=== PATIENT | male | born 1945 | race Caucasian/White ===

== ENCOUNTER 2024-01-19 16:22 | Emergency (ER) | payer OTHER ==
--- OUTSIDE RECORDS SUMMARY | 2024-01-19 16:25 | XMS REPORT | Continuity of Care Document ---
Author Name Unknown Address [address] [facility] [address] [place] [address] [facility] thconnect Address [address] [facility] [address] [place] [address] Care Team Providers Care Supervisor Line Department Name Role Phone Martin Stout Primary Care Physician [phone] JOE FAUSTIN Attending Clinician Andres Villeda MD, Joe Bonds Attending Clinician [phone] Doctor Unassigned, Drain Attending Clinician U Mirella Yee MD Attending Clinician [phone] MIRELLA WEBBER Attending Clinician JOE Alonso Admitting Clinician Andres Villeda MD, Joe Bonds Admitting Clinician [phone] Payers Payer Name Policy Type Policy Number Effective Date Expirati on Date Source MEDICARE PART A \T\ [id number] 2011 00:00:00 [employer] SENIOR SUPPLEMENT [id number] 2021 00:00:00 Allergies, Adverse Reactions, Alerts Allergy Name Allergy Type Status Severity Reaction(s) Onset Date Inactive Date Treating Clinician Comments Source NO KNOWN ALLERGIE S Drug Class Active [facility] Social History Social Habit Start Date Stop Date Quantity Comments Source Exposure to SARS-CoV-2 (event) Not sure General acute hospital Sexual orientation U [facility] History of Social function 2023-07-10 00:00:00 2023-07-10 00:00:00 [facility] Tobacco use and exposure 2023-06-19 00:00:00 2023-06-19 00:00:[address] [facility] Sex Assigned At 1945 00:00:00 1945 00:00:00 [facility] Smoking Status Start Date Stop Date Source Unknown if ever smoked [facility] Never smoked tobacco [facility] Medications Ordered Medication Name Filled Medication Name Start Date Stop Date Current Medication? Ordering Clinician Indication Dosage Frequency Signature (SIG) Comments Components Source sodium chloride (NS) injection 07-10 20:45: 00 07-10 20:58 :42 No PRN, Starting on Sat07/10/23 at 1445, Until Sat07/10/23 at 1458, Routine, Intra-op [facility] neomycin-po lymyxin-dex amethasone (MAXITROL) 3.5 mg/g-10,000 unit/g-0.1 % ophthalmic ointment 07-10 20:45: 00 07-10 20:58 :42 No PRN, Starting on Sat07/10/23 at 1445, Until Sat07/10/23 at 1458, Routine, Intra-op [facility] dexamethaso ne (DECADRON PHOSPHATE) injection 07-10 20:45: 00 07-10 20:58 :42 No PRN, Starting on Sat07/10/23 at 1445, Until Sat07/10/23 at 1458, Routine, Intra-op [facility] ceFAZolin (ANCEF) injection 07-10 20:45: 00 07-10 20:58 :42 No PRN, Starting on Sat07/10/23 at 1445, Until Sat07/10/23 at 1458, LIZA, Intra-op [facility] carbachoL (MIOSTAT) 0.01 % intraocular injection 07-10 20:44: 00 07-10 20:58 :42 No PRN, Starting on Sat07/10/23 at 1444, Until Sat07/10/23 at 1458, Routine, Intra-op [facility] chondroitin sulf-sod hyaluronate (DUOVISC VISCO ELASTIC) intraocular injection 07-10 20:35: 00 07-10 20:58 :42 No PRN, Starting on Sat07/10/23 at 1435, Until Sat07/10/23 at 1458, Routine, Intra-op [facility] EPINEPHrine 1:1,000 (1 mg/mL) (ADRENALIN) injection 07-10 20:34: 00 07-10 20:58 :42 No PRN, Starting on Sat07/10/23 at 1434, Until Sat07/10/23 at 1458, Routine, Intra-op [facility] balanced salt irrig soln comb1 (BSS PLUS) ophthalmic solution 500 mL bag 07-10 20:34: 00 07-10 20:58 :42 No PRN, Starting on Sat07/10/23 at 1434, Until Sat07/10/23 at 1458, Routine, Intra-op [facility] water for irrigation irrigation solution 07-10 20:28: 00 07-10 20:58 :42 No PRN, Starting on Sat07/10/23 at 1428, Until Sat07/10/23 at 1458, Routine, Intra-op [facility] Hyaluronida se, Human Recomb. (HYLENEX) injection 07-10 20:26: 00 07-10 20:58 :42 No PRN, Starting on Sat07/10/23 at 1426, Until Sat07/10/23 at 1458, Routine, Intra-op [facility] eye block syringe 11 mL 07-10 20:25: 00 07-10 20:58 :42 No PRN, Starting on Sat07/10/23 at 1425, Until Sat07/10/23 at 1458, Intra-op Univers [facility] cyclopent 1%-tropic 1%-phenyl 2.5%-ketor 0.5% (MYDRIATIC #5) ophthalmic solution syringe 0.5 mL 07-10 18:45: 00 07-10 18:40 :00 No .5mL 0.5 mL, Left Eye, ONCE, 1 dose, On Sat07/10/23 at 1245, Routine, DSU Pre-op [facility] lactated ringers IV infusion 1,000 mL 07-10 18:45: 00 07-10 18:40 :00 No 1000mL at 42 mL/hr, 1,000 mL, IV Infusion, ONCE, 1 dose, On Sat07/10/23 at 1245, Routine, DSU Pre-op [facility] omeprazole 40 mg capsule 07-10 15:27: 29 Yes 40mg Take 1 capsule by mouth in the morning. [facility] pravastatin 40 mg tablet 07-10 15:27: 29 Yes 40mg Take 1 tablet by mouth at bedtime. [facility] losartan 25 mg tablet 07-10 15:27: 29 Yes 25mg Take 1 tablet by mouth in the morning. [facility] tamsulosin 0.4 mg 24 hr capsule 07-10 15:27: 29 Yes Take by mouth daily. [facility] zinc gluconate 50 mg tablet 07-10 15:27: 29 Yes 50mg Take 1 tablet by mouth in the morning. [facility] antiox #8/om3/dha/ epa/lut/law x (PRESERVISI ON AREDS 2, OMEGA-3, ORAL) 07-10 15:27: 29 Yes 1{tbl} Take 1 tablet by mouth in the morning and 1 tablet in the evening. [facility] [place]-3-DHA -EPA-Fish Oil 1,200 (144-216) mg Cap 07-10 15:27: 29 Yes 1{capsu le} Take 1 capsule by mouth in the morning. [facility] lactated ringers IV infusion 1,000 mL 06-26 18:45: 00 Yes 1000mL at 50 mL/hr, 1,000 mL, IV Infusion, CONTINUOUS , Starting on Sat06/26/23 at 1245, Until Discontinu ed, Routine, PACU [facility] ondansetron (ZOFRAN (PF)) injection 4 mg 06-26 18:37: 44 Yes 4mg 4 mg, Slow IV Push, PRN, 1 dose, Starting on Sat06/26/23 at 1237, Until Discontinu ed, Routine, Nausea and Vomiting (N/V), PACU [facility] neomycin-po lymyxin-dex amethasone (MAXITROL) 3.5 mg/g-10,000 unit/g-0.1 % ophthalmic ointment 06-26 18:31: 00 06-26 18:41 :49 No PRN, Starting on Sat06/26/23 at 1231, Until Sat06/26/23 at 1241, Routine, Intra-op [facility] dexamethaso ne (DECADRON PHOSPHATE) injection 06-26 18:31: 00 06-26 18:41 :49 No PRN, Starting on Sat06/26/23 at 1231, Until Sat06/26/23 at 1241, Routine, Intra-op [facility] ceFAZolin (ANCEF) injection 06-26 18:31: 00 06-26 18:41 :49 No PRN, Starting on Sat06/26/23 at 1231, Until Sat06/26/23 at 1241, LIZA, Intra-op [facility] carbachoL (MIOSTAT) 0.01 % intraocular injection 06-26 18:30: 00 06-26 18:41 :49 No PRN, Starting on Sat06/26/23 at 1230, Until Sat06/26/23 at 1241, Routine, Intra-op [facility] chondroitin sulf-sod hyaluronate (DUOVISC VISCO ELASTIC) intraocular injection 06-26 18:21: 00 06-26 18:41 :49 No PRN, Starting on Sat06/26/23 at 1221, Until Sat06/26/23 at 1241, Routine, Intra-op [facility] water for irrigation irrigation solution 06-26 18:04: 00 06-26 18:41 :49 No PRN, Starting on Sat06/26/23 at 1204, Until Sat06/26/23 at 1241, Routine, Intra-op [facility] sodium chloride (NS) injection 06-26 18:03: 00 06-26 18:41 :49 No PRN, Starting on Sat06/26/23 at 1203, Until Sat06/26/23 at 1241, Routine, Intra-op [facility] Hyaluronida se, Human Recomb. (HYLENEX) injection 06-26 18:03: 00 06-26 18:41 :49 No PRN, Starting on Sat06/26/23 at 1203, Until Sat06/26/23 at 1241, Routine, Intra-op [facility] eye block syringe 11 mL 06-26 18:02: 00 06-26 18:41 :49 No PRN, Starting on Sat06/26/23 at 1202, Until Sat06/26/23 at 1241, Intra-op Univers [facility] EPINEPHrine 1:1,000 (1 mg/mL) (ADRENALIN) injection 06-26 18:01: 00 06-26 18:41 :49 No PRN, Starting on Sat06/26/23 at 1201, Until Sat06/26/23 at 1241, Routine, Intra-op [facility] balanced salt irrig soln comb1 (BSS PLUS) ophthalmic solution 500 mL bag 06-26 18:00: 00 06-26 18:41 :49 No PRN, Starting on Sat06/26/23 at 1200, Until Sat06/26/23 at 1241, Routine, Intra-op [facility] cyclopent 1%-tropic 1%-phenyl 2.5%-ketor 0.5% (MYDRIATIC #5) ophthalmic solution syringe 0.5 mL 06-26 16:15: 00 06-26 16:30 :00 No .5mL 0.5 mL, Right Eye, ONCE, 1 dose, On Sat06/26/23 at 1015, Routine, DSU Pre-op [facility] lactated ringers IV infusion 1,000 mL 06-26 16:15: 00 06-26 16:30 :00 No 1000mL at 42 mL/hr, 1,000 mL, IV Infusion, ONCE, 1 dose, On Sat06/26/23 at 1015, Routine, DSU Pre-op [facility] tamsulosin 0.4 mg 24 hr capsule 06-26 13:44: 47 Yes Take by mouth daily. [facility] zinc gluconate 50 mg tablet 06-26 13:44: 47 Yes 50mg Take 1 tablet by mouth in the morning. [facility] antiox #8/om3/dha/ epa/lut/law x (PRESERVISI ON AREDS 2, OMEGA-3, ORAL) 06-26 13:44: 47 Yes 1{tbl} Take 1 tablet by mouth in the morning and 1 tablet in the evening. [facility] [place]-3-DHA -EPA-Fish Oil 1,200 (144-216) mg Cap 06-26 13:44: 47 Yes 1{capsu le} Take 1 capsule by mouth in the morning. [facility] omeprazole 40 mg capsule 06-26 13:44: 47 Yes 40mg Take 1 capsule by mouth in the morning. [facility] pravastatin 40 mg tablet 06-26 13:44: 47 Yes 40mg Take 1 tablet by mouth at bedtime. [facility] losartan 25 mg tablet 06-26 13:44: 47 Yes 25mg Take 1 tablet by mouth in the morning. [facility] methylPREDN ISolone (MEDROL, DEANDRE,) 4 mg tablets 2019-05 00:00: 00 Yes [id number] 84mg Take 21 tablets by mouth SEE-INSTRU CTIONS. follow package directions [facility] No known medications No Un gabino [facility] No known medications No Un gabino [facility] No known medications No Un gabino it[facility] No known medications [facility]s Vital Name Observation Time Observation Value Comments Rell raya Systolic blood pressure 2023-07-10 21:10:00 123 mm[Hg] [facility] Diastolic blood pressure 2023-07-10 21:10:00 76 mm[Hg] [facility] Heart rate 2023-07-10 21:10:00 65 /min [facility] Body temperature 2023-07-10 21:10:[address] [facility] Respiratory rate 2023-07-10 21:10:00 9 /min [facility] Oxygen saturation in Arterial blood by Pulse oximetry 2023-07-10 21:10:00 96 /min [facility] Body height 2023-07-03 21:00:00 177.8 cm [facility] Body weight 2023-07-03 21:00:00 92.534 kg [facility] BMI 2023-07-03 21:00:00 29.27 kg/m2 [facility] Systolic blood pressure 2023-07-10 18:33:00 125 mm[Hg] [facility] Diastolic blood pressure 2023-07-10 18:33:00 86 mm[Hg] [facility] Heart rate 2023-07-10 18:33:00 98 /min [facility] Body temperature 2023-07-10 18:33:[address] [facility] Respiratory rate 2023-07-10 18:33:00 16 /min [facility] Oxygen saturation in Arterial blood by Pulse oximetry 2023-07-10 18:33:00 99 /min [facility] Body height 2023-07-03 21:00:00 177.8 cm [facility] Body weight 2023-07-03 21:00:00 92.534 kg [facility] BMI 2023-07-03 21:00:00 29.27 kg/m2 [facility] Heart rate 2023-06-26 19:00:00 66 /min [facility] Oxygen saturation in Arterial blood by Pulse oximetry 2023-06-26 19:00:00 97 /min [facility] Systolic blood pressure 2023-06-26 18:56:00 123 mm[Hg] [facility] Diastolic blood pressure 2023-06-26 18:56:00 80 mm[Hg] [facility] Respiratory rate 2023-06-26 18:56:00 13 /min [facility] Body temperature 2023-06-26 18:40:[address] [facility] Body height 2023-06-19 20:00:00 177.8 cm [facility] Body weight 2023-06-19 20:00:00 92.534 kg [facility] BMI 2023-06-19 20:00:00 29.27 kg/m2 [facility] Systolic blood pressure 2023-06-26 16:23:00 115 mm[Hg] [facility] Diastolic blood pressure 2023-06-26 16:23:00 84 mm[Hg] [facility] Heart rate 2023-06-26 16:23:00 95 /min [facility] Body temperature 2023-06-26 16:23:[address] [facility] Respiratory rate 2023-06-26 16:23:00 19 /min [facility] Oxygen saturation in Arterial blood by Pulse oximetry 2023-06-26 16:23:00 95 /min [facility] Body height 2023-06-19 20:00:00 177.8 cm [facility] Body weight 2023-06-19 20:00:00 92.534 kg [facility] BMI 2023-06-19 20:00:00 29.27 kg/m2 [facility] Systolic blood pressure 2020-03-07 18:31:00 114 mm[Hg] [facility] Diastolic blood pressure 2020-03-07 18:31:00 76 mm[Hg] [facility] Heart rate 2020-03-07 18:31:00 115 /min [facility] Body weight 2020-03-07 18:31:00 88.451 kg [facility] BMI 2020-03-07 18:31:00 27.98 kg/m2 [facility] Systolic blood pressure 2020-03-07 18:31:00 114 mm[Hg] [facility] Diastolic blood pressure 2020-03-07 18:31:00 76 mm[Hg] [facility] Heart rate 2020-03-07 18:31:00 115 /min [facility] acute hospital Body weight 2020-03-07 18:31:00 88.451 kg [facility] BMI 2020-03-07 18:31:00 27.98 kg/m2 [facility] Systolic blood pressure 2020-02-18 19:45:00 112 mm[Hg] [facility] Diastolic blood pressure 2020-02-18 19:45:00 80 mm[Hg] [facility] Heart rate 2020-02-18 19:45:00 93 /min [facility] acute hospital Body height 2020-02-18 19:45:00 177.8 cm [facility] Body weight 2020-02-18 19:45:00 88.451 kg [facility] BMI 2020-02-18 19:45:00 27.98 kg/m2 [facility] Procedures Procedure Date / Time Performed Performing Clinician Source PHACOEMULSIFICATION OF CATARACT WITH INTRAOCULAR LENS IMPLANT 2023-07-10 20:15:[address] [facility] PHACOEMULSIFICATION OF CATARACT WITH INTRAOCULAR LENS IMPLANT 2023-06-26 17:53:[address] [facility] PATIENT QUESTIONNAIRE 2023-06-26 06:01:00 Doctor Unassigned, Drain [facility] ASSIGNMENT OF BENEFITS 2023-06-17 21:56:28 Doctor Unassigned, Drain [facility] MR HIP RIGHT WO CONTRAST 2020-03-03 14:04:[address] [facility] ASSIGNMENT OF BENEFITS 2020-03-03 12:40:53 Doctor Unassigned, Drain [facility] ASSIGNMENT OF BENEFITS 2020-02-18 19:18:46 Doctor Unassigned, Drain [facility] Encounters Start Date/Time End Date/Time Encounter Type Admission Type Attending [facility] Care Department Encounter ID Source 2023-07-10 12:21:00 2023-07-10 15:18:00 Outpatient JOE CONTRERAS [facility] OPH [id number] [facility] 2023-07-10 12:21:00 2023-07-10 15:18:00 Hospital Encounter Joe Faustin [facility] [id number] 350.1.13.10 4.2.7.2.686 [id number] [facility] 2023-07-10 12:56:00 2023-07-10 13:30:00 Surgery Joe Faustin [facility] [id number] 350.1.13.10 4.2.7.2.686 [id number] [facility] 2023-06-26 10:10:00 2023-06-26 13:05:00 Outpatient R JOE FAUSTIN [facility] OPH [id number] [facility] 2023-06-26 10:10:00 2023-06-26 13:05:00 Hospital Encounter Joe Faustin [facility] [id number] 350.1.13.10 4.2.7.2.686 [id number] [facility] 2023-06-26 11:15:00 2023-06-26 11:49:00 Surgery Joe Faustin [facility] [id number] 350.1.13.10 4.2.7.2.686 [id number] [facility] 2023-06-26 00:00:00 2023-06-26 00:00:00 Orders Only Doctor Unassigned, Drain [facility] [id number] 350.1.13.10 4.2.7.2.686 [id number] [facility] 2023-06-17 00:00:00 2023-06-17 00:00:00 Orders Only Doctor Unassigned, Drain [facility] [id number] 350.1.13.10 4.2.7.2.686 [id number] [facility] 2020-03-07 13:27:31 2020-03-07 13:55:21 [facility] [id number] 350.1.13.10 4.2.7.2.686 [id number] [facility] 2020-03-07 13:27:31 2020-03-07 13:55:21 [facility] 1.2.114 350.1.13.10 4.2.7.2.686 [id number] 2020-03-07 13:30:00 2020-03-07 13:30:00 Outpatient R MIRELLA WEBBER [facility] [id number] [facility] 2020-03-03 07:43:01 2020-03-03 23:59:00 Hospital Encounter Mirella Webber [facility] [id number] 350.1.13.10 4.2.7.2.686 [id number] [facility] 2020-03-03 00:00:00 2020-03-03 00:00:00 Outpatient R MIRELLA WEBBER [facility] [id number] [facility] 2020-03-03 00:00:00 2020-03-03 00:00:00 Orders Only Doctor Unassigned, Drain [facility] 1.2.114 350.1.13.10 4.2.7.2.686 [id number] [facility] 2020-02-18 14:58:14 2020-02-18 23:59:00 Hospital Encounter Lawanda [facility] Surgical [facility] [id number] 350.1.13.10 4.2.7.2.686 [id number] [facility] 2020-02-18 14:23:45 2020-02-18 15:40:03 Office Visit Mirella Webber [facility] [id number] 350.1.13.10 4.2.7.2.686 [id number] [facility] 2020-02-18 14:15:00 2020-02-18 14:15:00 Outpatient R MIRELLA WEBBER [facility] [id number] [facility] 2020-02-18 00:00:00 2020-02-18 00:00:00 Orders Only Doctor Unassigned, Drain [facility] [id number] 350.1.13.10 4.2.7.2.686 [id number] [facility] Results Test Description Test Time Test Comments Results Result Co mments Source [facility] 23:44:00* Test Item Value Reference Range Interpretation Comme nts TSH (test code = 46889610) 1.05 mIU/L 0.40-4.50 N FASTING:[facility], [id number] 23:44:00* Test Item Value Reference Range Interpretation Comme nts PSA, TOTAL (test code = 62988946) 0.25 ng/mL <=4.00 N The total PSA v alue from this assay system is standardized against the WHO standard. The test result will be approximately 20% lower when compared to the equimolar-standardized total PSA (Chichi Catrina). Comparison of serial PSA results should be interpreted with this fact in mind. This test was performed using the Siemens chemiluminescent method. Values obtained from different assay methods cannot be usedinterchangeably. PSA levels, regardless ofvalue, should not be interpreted as absoluteevidence of the presence or absence of disease. FASTING:[facility] RIGHT WO [id number] 14:32:27 Severe iliopsoas bursitis with iliopsoas tendinopathy. Partial tear of the gluteus medius at the lateral facet greater trochanterinsertion. 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 EXAM: MRI RIGHT HIP HISTORY: Hip pain, chronic, initial exam COMPARISON: Right hip radiographs dated 02/18/2020 TECHNIQUE AND FINDINGS: 1.5T multiplanar multiweighted MR imaging of the right hip was performed. BONE AND JOINT: Severe lumbosacral junction spondylosis and facet arthropathy are partiallyvisualized. Bilateralfemoral acetabular joint space loss with marginalosteophyte formation is seen bilaterally. There isgrade 3 femoralacetabular chondral loss with extensive subcortical cystic changes andedema noted along the superior femoral head and adjacent articular surfaceof the acetabulum. ?A moderate sized right hip joint effusion is presentwith no labral detachment. Serpentine and patchy foci of T2 signal increaseare scattered throughout the femoral neck which may relate to atypical redmarrow conversion reconversion versus medullary vascularity. LIGAMENTS /TENDONS/SOFT TISSUES:Marked heterogeneous hyperintense fluid signal intensity distends theiliopsoas bursa from the level of the proximal myotendinous junctionadjacent to the iliac fossa/anterior wall acetabulum to the level of thelesser trochanter insertion. Internal low signal debris is seen throughoutthis region. This process spans at least 10.2 cm in greatest craniocaudaldimension. Edema extends into the surrounding iliopsoas musculature. Thereis intermediate T2 signal increase with thickening seen about the distaltendon fibers at the lesser trochanter insertion. T2 fluid signal intensityinterrupts the gluteus medius tendon at the lateral facet greatertrochanter insertion with a 3 cm fluid-filled retraction gap. Mildinterstitial T2 signal increase is seen at the tendinous origin of thecommon hamstring tendon complex. Partial fatty infiltration is seen alongthe lateral muscle belly of the proximal muscle belly of the rectus femoriswhich may relate to a prior partial tear. The piriformis muscle belliesappear symmetric. There is mild edema within the adductor musculature. [facility], Radiant Results Inft User - 03/03/2020 9:33 AM CDTEXAM:MRI RIGHT HIPHISTORY: Hip pain, chronic, initial exam COMPARISON: Right hip radiographs dated 02/18/2020TECHNIQUE AND FINDINGS:1.5T multiplanar multiweighted MR imaging of the right hip was performed.BONE AND JOINT: Severe lumbosacral junction spondylosis and facet arthropathy are partiallyvisualized. Bilateral femoral acetabular joint space loss with marginalosteophyte formation is seen bilatera lly. There is grade 3 femoralacetabular chondral loss with extensive subcortical cystic changes andedema noted along the superior femoral head and adjacent articular surfaceof the acetabulum. A moderate sized right hip joint effusion is presentwith no labral detachment. Serpentine and patchy foci of T2 signal increaseare scattered throughout the femoral neck which may relate to atypical redmarrowconversion reconversion versus medullary vascularity.LIGAMENTS /TENDONS/SOFT TISSUES:Marked heterogeneous hyperintense fluid signal intensity distends theiliopsoas bursa from the level of the proximal myotendinous junctionadjacent to the iliac fossa/anterior wall acetabulum to the level of thelesser trochanter insertion. Internal low signal debris is seen throughoutthis region. This process spansat least 10.2 cm in greatest craniocaudaldimension. Edema extends into the surrounding iliopsoas musculature. Thereis intermediate T2 signal increase with thickening seen about the distaltendon fibers at the lesser trochanter insertion. T2 fluid signal intensityinterrupts the gluteus medius tendon at the lateral facet greatertrochanter insertion with a 3 cm fluid-filled retraction gap. Mildinterst itial T2 signal increase is seen at the tendinous origin of thecommon hamstring tendon complex. Partial fatty infiltration is seen alongthe lateral muscle belly of the proximal muscle belly of the rectus femoriswhich may relate to a prior partial tear. 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 [facility] 2023-06-26 11:08:29 H&P Update H&P was reviewed and the patient was examined and there was no change in the patient's condition. [facility] Notes Date/Time Note Provider Source 2023-07-03 15:55:41 Images from the original note were not included. Your procedure is at [facility] on 07/10/23. The [address] is [address] [place] [address], [id number]. [facility] nursing staff will call you the workday before your procedure to let you know what time to arrive.On the day of your procedure, please go inside that door and check in at the desk. Please note: You may not travel home alone and that includes in a taxi or by bus. We must speak to your Responsible Adult (who will be picking you up) the morning of your procedure, before the start of your procedure. This person must be an adult over the age of 18 years of age. Do not eat any solid food after midnight the night before surgery. You may have sips of clear liquids such as water, gatorade, and sprite up until two hours before your scheduled procedure. You may take your medications with a sip of water as directed by physician. Anticoagulants will be per physician guidance. Medication Note(s)/Instructions:n/a Pending screening, we may test for COVID. If a patient tests positive, their cases are cancelled and/or rescheduled. COVID SCREENING NOTE: Denies COVID symptoms, no testing required. Additional requests, questions, concerns:CB number provided. Patient verbalized understanding of pre-op instructions and voiced no further questions at this time. [facility] 2023-06-19 14:54:24 Images from the original note were not included. Your procedure is at [facility] on 06/26/23. The address is [address] [place] [address], [id number]. [facility] nursing staff will call you the workday before your procedure to let you know what time to arrive.On the day of your procedure, please go inside that door and check in at the desk. Please note: You may not travel home alone and that includes in a taxi or by bus. We must speak to your Responsible Adult (who will be picking you up) the morning of your procedure, before the start of your procedure. This person must be an adult over the age of 18 years of age. Do not eat any solid food after midnight the night before surgery. You may have sips of clear liquids such as water, gatorade, and sprite up until two hours before your scheduled procedure. You may take your medications with a sip of water as directed by physician. Anticoagulants will be per physician guidance. Medication Note(s)/Instructions:n/a Pending screening, we may test for COVID. If a patient tests positive, their cases are cancelled and/or rescheduled. COVID SCREENING NOTE: Denies COVID symptoms, no testing required. Additional requests, questions, concerns:n/a. CB number provided. Patient verbalized understanding of pre-op instructions and voiced no further questions at this time. [facility]ALTH [facility]ARE [email or web address] [facility]
[2024-01-19] MEDS ORDERED: TDAP (DIPHTH,PERTUSS(ACELL),TET VAC) 0.5 ML VIAL IMVAC ONE (16:46)
[2024-01-19] MEDS ORDERED: LIDOCAINE 2% W/EPI 1:200,000 MPF 20 ML VIAL IM ONE (16:46)
--- NOTE | 2024-01-19 18:37 | EDPHYS ---
Physician Documentation [facility] Name: Kapil Terrell Age: 78 yrs Sex: Male : 1945 Arrival Date: 01/19/2024 Time: 16:22 Bed 8 Private MD: ED Physician Debra Nina HPI: 01/18 18:32 This 78 yrs old Male presents to ER via Ambulatory with complaints of Laceration To Leg.sd2 18:32 78-year-old male presents with chief complaint of laceration to his left leg from a sd2 garden tiller. He reports that the tool was still in 1 piece and he does not think there are any foreign bodies in the wound. Tetanus is not currently up to date. . Historical: - Allergies: 16:28 No Known Allergies; kc6 - PMHx: 16:28 Hypertensive disorder; colon cancer; prostate cancer; Hypercholesterolemia; kc6 - PSHx: 16:28 Appendectomy; colon resection; kc6 - Immunization history:: Adult Immunizations up to date. - Infectious Disease History:: Denies. - Social history:: Smoking status: Patient denies any tobacco usage or history of. ROS: 18:32 Constitutional: Negative for fever, chills, and weight loss, MS/Extremity: Positive for sd2 injury and negative for deformity Skin: Positive for injury. Negative for rash and discoloration. Neuro: Negative for headache, numbness and tingling. Exam: 18:32 Constitutional: This is a well developed, well nourished patient who is awake, alert, sd2 and in no acute distress. Head/Face: Normocephalic, atraumatic. Skin: Warm, dry with normal turgor. Deep laceration noted to the left lateral martin area with controlled bleeding and visible muscle and fascia, approximately 10 cm. There is another small superficial laceration noted to the dorsum of the left midfoot with controlled bleeding, approximately 4 cm. MS/ Extremity: Pulses equal, no cyanosis. Neurovascular intact. Full, normal range of motion. Vital Signs: 16:25 BP 91 / 68; Pulse 94; Resp 16 S; Temp 98.2(O); Pulse Ox 95% on R/A; Weight 89.81 kg kc6 (R); Height 5 ft. 10 in. (R); Pain 2/10; 17:45 BP 94 / 71; Pulse 87; Resp 16 S; Pulse Ox 97% on R/A; kc6 18:52 BP 102 / 75; Pulse 77; Resp 18; Temp 98; Pulse Ox 96% on R/A; kj2 16:25 Body Mass Index 28.41 (89.81 kg, 177.8 cm) kc6 16:25 Pain Scale: Adult kc6 Laceration: 18:32 Wound Repair of 10cm ( 3.9in ) subcutaneous laceration to left leg. Irregularly sd2 shaped.. Skin/tissue flap noted.. Hemostasis noted.. Distal neuro/vascular/tendon intact. Anesthesia: Local anesthetic administered with 5 mls of 1% lidocaine. Wound prep: Extensive cleansing, Wound irrigation. Subcutaneous tissue closed with 2 4-0 Vicryl using simple sutures and sterile technique. Skin closed with 14 4-0 Prolene using simple sutures and sterile technique. Dressed with 4x4's, Kerlix. Patient tolerated well. 18:32 Wound Repair of 4cm ( 1.6in ) subcutaneous laceration to dorsum of left foot. Linear sd2 shaped.. Distal neuro/vascular/tendon intact. Anesthesia: Local anesthetic administered with 3 mls of 1% lidocaine. Wound prep: Extensive cleansing, Wound irrigation. Skin closed with 4 4-0 Prolene using simple sutures and sterile technique. Dressed with 4x4's, Kerlix. Patient tolerated well. MDM: 16:26 Patient medically screened. cp 18:32 Differential diagnosis: superficial laceration, tendon injury, vascular injury, among sd2 others. Data reviewed: vital signs, nurses notes, radiologic studies. Historians other than the Patient: Spouse/Significant Other: at BS. Counseling: I had a detailed discussion with the patient and/or guardian regarding the historical points, exam findings, and any diagnostic results supporting the discharge/admit diagnosis, radiology results, the need for outpatient follow up, to return to the emergency department if symptoms worsen or persist or if there are any questions or concerns that arise at home. ED course: Laceration repaired without complication or difficulty. Pt tolerated well. Advised of continued wound care and time frame for suture removal. . 01/18 16:34 Order name: XRAY Tib Fib LEFT cp 01/18 16:34 Order name: Dressing - Wound; Complete Time: 16:35 cp 01/18 16:34 Order name: Gloves, Sterile; Complete Time: 16:35 cp 01/18 16:34 Order name: Setup Suture Tray; Complete Time: 16:35 cp 01/18 17:32 Order name: Prolene, Sutures; Complete Time: 17:39 sd2 01/18 17:32 Order name: Vicryl, Sutures; Complete Time: 17:39 sd2 Administered Medications: 16:49 Drug: Boostrix Tdap IM 0.5 ml IM once; as a single dose Route: IM; Site: right deltoid; kc6 17:39 Follow up: Response: No adverse reaction kc6 17:59 Drug: Lidocaine Infiltration (2 %) 20 ml 5 ml Infiltration once; with epinephrine kc6 Volume: 5 ml; Route: Infiltration; Disposition Summary: 01/19/24 18:37 Discharge Ordered Problem: new sd2 Symptoms: have improved sd2 Condition: Stable sd2 Diagnosis - Laceration of left lower leg sd2 - Laceration of dorsum of left foot sd2 Followup: sd2 - With: Emergency Department - When: 7 - 10 days - Reason: Staple/Suture removal Discharge Instructions: - Discharge Summary Sheet sd2 - Laceration Care, Adult sd2 Forms: - Medication Reconciliation Form sd2 - Antibiotic Education sd2 - Prescription Opioid Use sd2 - Patient Portal Instructions sd2 - Leadership Thank You Letter sd2 Signatures: Dispatcher [employer] Raghav Vasques PA PA cp Dunlop, Stephanie, MD MD sd2 Юлия Cash RN RN kc6
--- NOTE | 2024-01-19 18:37 | ER ---
Nurse's Notes [facility] Name: Kapil Terrell Age: 78 yrs Sex: Male : 1945 Arrival Date: 01/19/2024 Time: 16:22 Bed 8 Private MD: Diagnosis: Laceration of left lower leg;Laceration of dorsum of left foot Presentation: 01/18 16:25 Chief complaint: Patient states: pt ambulated into ER via the ambulance bay. pt states kc6 he was starting up his garden tiller when it caught ahold of his pant leg and pulled his leg into it. denies use of blood thinners. Coronavirus screen: At this time, the client does not indicate any symptoms associated with coronavirus-19. Ebola Screen: No symptoms or risks identified at this time. Complicating Factors: There are no complicating factors for this patient. Initial Sepsis Screen: Does the patient meet any 2 criteria? No. Patient's initial sepsis screen is negative. Does the patient have a suspected source of infection? No. Patient's initial sepsis screen is negative. Risk Assessment: Do you want to hurt yourself or someone else? Patient reports no desire to harm self or others. Onset of symptoms was January 19, 2024. 16:25 Method Of Arrival: Ambulatory kc6 16:25 Acuity: CATRINA 3 kc6 Triage Assessment: 16:28 General: Appears in no apparent distress. comfortable, well groomed, well developed, kc6 Behavior is calm, cooperative, appropriate for age. Pain: Complains of pain in dorsum of left foot and lateral aspect of left calf Pain currently is 2 out of 10 on a pain scale. EENT: No signs and/or symptoms were reported regarding the EENT system. Neuro: Level of Consciousness is awake, alert, obeys commands, Oriented to person, place, time, situation, Appropriate for age. Cardiovascular: Capillary refill < 3 seconds. Respiratory: Airway is patent Trachea midline Respiratory effort is even, unlabored, Respiratory pattern is regular, symmetrical. GI: No signs and/or symptoms were reported involving the gastrointestinal system. : No signs and/or symptoms were reported regarding the genitourinary system. Derm: No signs and/or symptoms reported regarding the dermatologic system. Skin is intact, is healthy with good turgor, Skin is dry, Skin is pale, Skin temperature is warm. Musculoskeletal: No signs and/or symptoms reported regarding the musculoskeletal system. Capillary refill < 3 seconds, Range of motion: intact in all extremities. Injury Description: Laceration sustained to dorsum of left foot and lateral aspect of left calf. Historical: - Allergies: 16:28 No Known Allergies; 6 - PMHx: 16:28 Hypertensive disorder; colon cancer; prostate cancer; Hypercholesterolemia; 6 - PSHx: 16:28 Appendectomy; colon resection; kc6 - Immunization history:: Adult Immunizations up to date. - Infectious Disease History:: Denies. - Social history:: Smoking status: Patient denies any tobacco usage or history of. Screenin:32 [facility] ED Fall Risk Assessment (Adult) History of falling in the last 3 months, [facility] including since admission No falls in past 3 months (0 pts) Confusion or Disorientation No (0 pts) Intoxicated or Sedated No (0 pts) Impaired Gait No (0 pts) Mobility Assist Device Used No (0 pt) Altered Elimination No (0 pt) Score/Fall Risk Level 0 - 2 = Low Risk. Abuse screen: Denies threats or abuse. Denies injuries from another. Nutritional screening: No deficits noted. Tuberculosis screening: No symptoms or risk factors identified. Assessment: 16:30 Reassessment: please see triage. [facility] 17:30 Reassessment: Patient appears in no apparent distress at this time. No changes from [facility] previously documented assessment. Patient and/or family updated on plan of care and expected duration. Pain level reassessed. Patient is alert, oriented x 3, equal unlabored respirations, skin warm/dry/pink. 18:30 Reassessment: Patient appears in no apparent distress at this time. No changes from [facility] previously documented assessment. Patient and/or family updated on plan of care and expected duration. Pain level reassessed. Patient is alert, oriented x 3, equal unlabored respirations, skin warm/dry/pink. Vital Signs: 16:25 BP 91 / 68; Pulse 94; Resp 16 S; Temp 98.2(O); Pulse Ox 95% on R/A; Weight 89.81 kg kc6 (R); Height 5 ft. 10 in. (R); Pain 2/10; 17:45 BP 94 / 71; Pulse 87; Resp 16 S; Pulse Ox 97% on R/A; kc6 18:52 BP 102 / 75; Pulse 77; Resp 18; Temp 98; Pulse Ox 96% on R/A; kj2 16:25 Body Mass Index 28.41 (89.81 kg, 177.8 cm) kc6 16:25 Pain Scale: Adult kc6 ED Course: 16:25 Patient arrived in ED. kc6 16:25 Raghav Pastor PA is PHCP. cp 16:25 Debra Nina MD is Attending Physician. cp 16:28 Triage completed. kc6 16:28 Arm band placed on. kc6 16:32 Юлия Cash RN is Primary Nurse. kc6 16:32 Patient has correct armband on for positive identification. Placed in gown. Bed in low kc6 position. Call light in reach. Side rails up X 1. Adult w/ patient. Pulse ox on. NIBP on. Door closed. Noise minimized. Lights dimmed. Pillow given. 17:26 Debra Nina MD is Attending Physician. sd2 17:45 Irrigation of laceration on lateral aspect of left calf irrigated with normal saline kc6 Patient tolerated well. 17:54 XRAY Tib Fib LEFT In Process Unspecified. EDMS 18:16 Assist provider with laceration repair on dorsum of left foot and lateral aspect of kc6 left calf using sutures. Set up tray. Performed by Debra Nina MD Patient tolerated well. 19:19 Wound care: to laceration located on dorsum of left foot and lateral aspect of left kc6 calf was dressed with non adherent dressing, gauze, and luke wrap. 19:20 Provided Education on: wound care and follow up. kc6 19:20 Patient did not have IV access during this emergency room visit. kc6 Administered Medications: 16:49 Drug: Boostrix Tdap IM 0.5 ml IM once; as a single dose Route: IM; Site: right deltoid; kc6 17:39 Follow up: Response: No adverse reaction kc6 17:59 Drug: Lidocaine Infiltration (2 %) 20 ml 5 ml Infiltration once; with epinephrine kc6 Volume: 5 ml; Route: Infiltration; Medication: 18:51 VIS not applicable for this client. kj2 Outcome: 18:37 Discharge ordered by . sd2 19:20 Discharged to home via wheelchair, with significant other, kc6 19:20 Condition: good 19:20 Discharge instructions given to patient, significant other, Instructed on discharge instructions, follow up and referral plans. wound care, Demonstrated understanding of instructions, follow-up care, wound care, 19:20 Patient left the ED. kc6 Signatures: Dispatcher [employer] EDMS Raghav Pastor PA PA cp Dunlop, Stephanie, MD MD sd2 Юлия Cash RN RN kc6 Arabella Booker RN RN kj2
[2024-01-19 19:31] VITALS: BP 102/75; TEMP 98; O2SAT 96
--- NOTE | 2024-01-19 19:48 | RAD REPORT ---
EXAM DESCRIPTION: RAD - Tib Fib Left - 01/19/2024 5:52 pm CLINICAL HISTORY: laceration COMPARISON: <Comparisons> TECHNIQUE: Left tibia and fibula, 2 views. FINDINGS: No fracture is identified. Partially visualized left total knee arthroplasty hardware. There is no dislocation or periosteal reaction noted. Soft tissue irregularity and some superficial g as along the ventral and lateral distal lower leg. No foreign body or other soft tissue abnormality. IMPRESSION: Soft tissue abnormalities as above. No underlying acute osseous process.
== END 2024-01-19 19:20 | disposition home or self-care (01) ==
LOC: ER 16:22
PROC: 0HQNXZZ Repair Left Foot Skin, External Approach (ICD-10-PCS; principal; 2024-01-19)
PROC: 0HQLXZZ Repair Left Lower Leg Skin, External Approach (ICD-10-PCS; 2024-01-19)
DX: S81.812A Laceration without foreign body, left lower leg, initial encounter (principal); S91.312A Laceration without foreign body, left foot, initial encounter; W27.8XXA Contact with other nonpowered hand tool, initial encounter
CPT/HCPCS: 12034; 12042; 96372; 99284